=== PATIENT | male | born 1955 | race Caucasian/White ===

== ENCOUNTER 2022-05-11 09:44 | Emergency (ER) | payer MEDICARE, BC ==
[2022-05-11] MEDS ORDERED: fentaNYL 50 MCG/ML SDV IVPUSH ONE (10:52)
[2022-05-11] MEDS ORDERED: cefTRIAXone 1 GM in Sodium Chloride 0.9% 50 ML IV ONE (11:23)
== END 2022-05-11 14:12 | disposition home or self-care (01) ==
LOC: JP.ED 09:44
DX: N13.2 Hydronephrosis with renal and ureteral calculous obstruction (principal); R03.0 Elevated blood-pressure reading, without diagnosis of hypertension; D72.829 Elevated white blood cell count, unspecified; N28.89 Other specified disorders of kidney and ureter; F17.210 Nicotine dependence, cigarettes, uncomplicated; R79.89 Other specified abnormal findings of blood chemistry; Z88.5 Allergy status to narcotic agent; Z88.8 Allergy status to other drugs, medicaments and biological substances
CPT/HCPCS: 36415; 74176; 80048; 81001; 85025; 87086; 96365; 96375; 99284; 99284-25; J0696; J3010